=== PATIENT | female | born 1965 ===

== ENCOUNTER 2018-03-05 20:48 | Emergency (ER) | payer OTHER ==
[~2018-03-05] VITALS: Ht 165.1 cm; Wt 71.2 kg
[~2018-03-05 20:48] MED LIST: CLARITIN10 M1 PO; PREMPRO 0.3 MG/1 TAB PO; SYNTHROID50 MCG PO
== END 2018-03-06 00:05 | disposition home or self-care (01) ==
LOC: ER 20:48
DX: J11.1 Influenza due to unidentified influenza virus with other respiratory manifestations (principal)